=== PATIENT | female | born 1990 | race Caucasian/White ===

== ENCOUNTER 2021-09-09 19:24 | Emergency (ER) | payer OTHER ==
[~2021-09-09] VITALS: Ht 152.4 cm; Wt 40.8 kg
[2021-09-09 21:37] LABS: URINE BILIRUBIN NEGATIVE (Negative); URINE BLOOD NEGATIVE (Negative); URINE CLARITY CLEAR; URINE COLOR YELLOW; URINE GLUCOSE-RANDOM NEGATIVE (Negative); URINE KETONES NEGATIVE (Negative); URINE LEUKOCYTES-REFLEX NEGATIVE (Negative); URINE NITRITE-REFLEX NEGATIVE (Negative); URINE PROTEIN NEGATIVE (Negative); URINE SPECIFIC GRAVITY 1.015 (1.005-1.030); URINE UROBILINOGEN 0.2 E.U./dl (0.2-1.0)
[2021-09-09 22:20] VITALS: BP 102/44
[2021-09-09] MEDS ORDERED: APAP W/CODEINE1 TA2 PO ×3 (22:25→22:56)
[2021-09-09] MEDS ORDERED: NAPROXEN250 MG PO ×3 (22:25→22:55)
[2021-09-09] MEDS ORDERED: DOXYCYCLINE 10100 MG PO ×4 (22:31→22:55)
[2021-09-09] MEDS ORDERED: ONDANSETRON ODT4 MG PO (22:52)
[2021-09-09] MEDS ORDERED: XANAX 0.25 MG0.25 MG PO ×2 (22:56→22:57)
== END 2021-09-09 23:18 | disposition home or self-care (01) ==
LOC: M.ERS 19:24
PROVIDERS: Physician Assistant
DX: S31.41XA Laceration without foreign body of vagina and vulva, initial encounter (principal); T74.21XA Adult sexual abuse, confirmed, initial encounter; M25.562 Pain in left knee; M25.561 Pain in right knee; R10.2 Pelvic and perineal pain; X58.XXXA Exposure to other specified factors, initial encounter; Y93.89 Activity, other specified; Y92.89 Other specified places as the place of occurrence of the external cause; Y99.8 Other external cause status